=== PATIENT | male | born 1950 | race Caucasian/White ===

== ENCOUNTER 2017-05-24 18:48 | Emergency (ER) | payer MEDICARE, MEDICAID ==
[~2017-05-24] VITALS: Ht 180.3 cm; Wt 81.6 kg
[2017-05-24 18:50] VITALS: BP 145/89
[2017-05-24] MEDS ORDERED: AZITHROMYCIN 250 MG TABLET ONE (20:20)
[2017-05-24] MEDS ORDERED: AZITHROMYCIN 250 MG TABLET PO ONE (20:30)
== END 2017-05-24 21:02 | disposition home or self-care (01) ==
LOC: ER 18:51
DX: J18.9 Pneumonia, unspecified organism (principal); F17.210 Nicotine dependence, cigarettes, uncomplicated; Z71.6 Tobacco abuse counseling; Z87.891 Personal history of nicotine dependence
CPT/HCPCS: 71045-TC; A4606; Z7610

== ENCOUNTER 2020-03-17 09:34 | Inpatient (IN) | payer MEDICARE, OTHER ==
[~2020-03-17] VITALS: Ht 175.3 cm; Wt 84.4 kg
[2020-03-17 09:55] LABS: BASOPHILS % (AUTO) 0.3 % (0.0-2.0); EOSINOPHILS % (AUTO) 0.7 % (0.0-6.0); HEMATOCRIT 46 % (39-51); HEMOGLOBIN 15.1 g/dL (13.5-17.5); LYMPHOCYTES # (AUTO) 1.2 /CMM (0.8-4.8); LYMPHOCYTES % (AUTO) 26.1 % (20.0-44.0); MEAN CORPUSCULAR HGB CONC 33 g/dl (31.0-36.0); MEAN CORPUSCULAR VOLUME 97 fL (80-96); MONOCYTES # (AUTO) 0.4 /CMM (0.1-1.30); MONOCYTES % (AUTO) 9.3 % (2.0-12.0); NEUTROPHILS % (AUTO) 63.6 % (43.0-81.0); PLATELET COUNT (AUTO) 192 /CMM (150-450); RED BLOOD CELL COUNT(AUTO) 4.71 MIL/uL (4.5-6.0); WHITE BLOOD COUNT (AUTO) 4.7 K/uL (4.3-11.0)
[2020-03-17] MEDS ORDERED: DILTIAZEM HCL 25 MG IV ONE (09:57)
[2020-03-17] MEDS ORDERED: ASPIRIN 325 MG TABLET ONE (09:58)
[2020-03-17] MEDS ORDERED: DILTIAZEM HCL IV 125 MG in IV NS 0.9% 100 ML IV PRN (10:00)
[2020-03-17] MEDS ORDERED: NITROGLYCERIN 0.4 MG/TAB BOTTLE SL ONE (10:00)
[2020-03-17] MEDS ORDERED: ASPIRIN 325 MG TABLET PO ONE (10:00)
[2020-03-17] MEDS ORDERED: DILTIAZEM HCL 50 MG IV IV ONE (10:00)
[2020-03-17 10:03] LABS: CALCIUM, SERUM 9.4 mg/dL (8.5-10.1); CARBON DIOXIDE 28 mmol/L (21-32); CHLORIDE 106 mmol/L (98-107); CREATININE 1.3 mg/dL (0.6-1.3); GLUCOSE 122 mg/dL (74-106); POTASSIUM 4.8 mmol/L (3.5-5.1); SODIUM SERUM 142 mmol/L (136-145); UREA NITROGEN, BLOOD 16 mg/dL (7-18)
[2020-03-17] MEDS ORDERED: IBUP-1955 PO (10:06)
[2020-03-17] MEDS ORDERED: ATOR10TA PO (10:06)
[2020-03-17] MEDS ORDERED: CARV6.252 PO (10:06)
[2020-03-17] MEDS ORDERED: HYDR-4076 PO (10:06)
[2020-03-17] MEDS ORDERED: AMLO-213 PO (10:06)
[2020-03-17] MEDS ORDERED: TERA2CAP4 PO (10:06)
[2020-03-17] MEDS ORDERED: MEMA10TA56 PO (10:06)
[2020-03-17] MEDS ORDERED: MAG HYDROX/AL HYDROX/SIMETH 30 ML UDC PO PRN (12:30)
[2020-03-17] MEDS ORDERED: MORPHINE SULFATE INJ 2 MG/ML DISP.SYRIN IV PRN (12:30)
[2020-03-17] MEDS ORDERED: NICARDIPINE IN NACL, ISO-OSM 200 ML IV PRN (12:30)
[2020-03-17] MEDS ORDERED: hydrALAZINE HCL 25 MG TABLET PO PRN (12:30)
[2020-03-17] MEDS ORDERED: ONDANSETRON HCL/PF 4 MG/2 ML VIAL IVP PRN (12:30)
[2020-03-17] MEDS ORDERED: DOCUSATE SODIUM 100 MG CAPSULE PO PRN (12:30)
[2020-03-17 13:18] LABS: THYROID STIMULATING HORMONE 1.929 uIU/mL (0.358-3.74)
[2020-03-17] MEDS ORDERED: CARVEDILOL 6.25 MG TABLET ONE (17:02)
[2020-03-17] MEDS ORDERED: APIXABAN 5 MG TABLET ONE (17:02)
[2020-03-17] MEDS ORDERED: MEMANTINE HCL 5 MG TABLET ONE (17:03)
[2020-03-17] MEDS: APIXABAN 5 MG TABLET PO SCH (17:07)
[2020-03-17] MEDS: CARVEDILOL 6.25 MG TABLET PO SCH (17:07)
[2020-03-17] MEDS: MEMANTINE HCL 5 MG TABLET PO SCH (17:07)
[2020-03-17] MEDS ORDERED: ATORVASTATIN 10 MG TABLET ONE (18:27)
[2020-03-17] MEDS: ATORVASTATIN 10 MG TABLET PO SCH (18:34)
[2020-03-17] MEDS: TERAZOSIN HCL 1 MG CAPSULE PO SCH (21:20)
[2020-03-18 05:41] LABS: BASOPHILS % (AUTO) 0.3 % (0.0-2.0); EOSINOPHILS % (AUTO) 1.3 % (0.0-6.0); HEMATOCRIT 42 % (39-51); HEMOGLOBIN 13.7 g/dL (13.5-17.5); LYMPHOCYTES # (AUTO) 1.3 /CMM (0.8-4.8); LYMPHOCYTES % (AUTO) 28.7 % (20.0-44.0); MEAN CORPUSCULAR HGB CONC 33 g/dl (31.0-36.0); MEAN CORPUSCULAR VOLUME 97 fL (80-96); MONOCYTES # (AUTO) 0.5 /CMM (0.1-1.30); MONOCYTES % (AUTO) 12.4 % (2.0-12.0); NEUTROPHILS # (AUTO) 2.5 /CMM (1.8-8.9); NEUTROPHILS % (AUTO) 57.3 % (43.0-81.0); PLATELET COUNT (AUTO) 170 /CMM (150-450); RED BLOOD CELL COUNT(AUTO) 4.31 MIL/uL (4.5-6.0); WHITE BLOOD COUNT (AUTO) 4.4 K/uL (4.3-11.0)
[2020-03-18 06:04] LABS: ALBUMIN 3.4 g/dL (3.4-5.0); BILIRUBIN,TOTAL 0.7 mg/dL (0.2-1.0); CALCIUM, SERUM 9.2 mg/dL (8.5-10.1); CREATININE 1.3 mg/dL (0.6-1.3); MAGNESIUM 2.1 mg/dL (1.8-2.4); PHOSPHORUS 4.3 mg/dL (2.5-4.9); POTASSIUM 4.2 mmol/L (3.5-5.1); TOTAL PROTEIN, SERUM 7.3 g/dL (6.4-8.2)
[2020-03-18 06:20] LABS: THYROID STIMULATING HORMONE 1.316 uIU/mL (0.358-3.74)
[2020-03-18] MEDS ORDERED: ASPIRIN 81 MG TAB.CHEW ONE (08:49)
[2020-03-18] MEDS ORDERED: MEMANTINE HCL 5 MG TABLET ONE ×2 (08:49→17:39)
[2020-03-18] MEDS ORDERED: APIXABAN 5 MG TABLET ONE ×2 (08:49→17:38)
[2020-03-18] MEDS ORDERED: CARVEDILOL 6.25 MG TABLET ONE (08:49)
[2020-03-18] MEDS ORDERED: DILTIAZEM HCL CD 120 MG ONE (08:49)
[2020-03-18] MEDS: MEMANTINE HCL 5 MG TABLET PO SCH ×2 (08:53→17:39)
[2020-03-18] MEDS: CARVEDILOL 6.25 MG TABLET PO SCH (08:53)
[2020-03-18] MEDS: APIXABAN 5 MG TABLET PO SCH ×2 (08:53→17:39)
[2020-03-18] MEDS ORDERED: DILTIAZEM HCL CD 120 MG PO SCH (09:00)
[2020-03-18] MEDS ORDERED: ASPIRIN 81 MG TAB.CHEW PO SCH (09:00)
[2020-03-18] MEDS ORDERED: AMLODIPINE BESYLATE 10 MG TABLET PO SCH ×2 (09:00)
[2020-03-18] MEDS: TERAZOSIN HCL 1 MG CAPSULE PO SCH (18:00)
[2020-03-18] MEDS: ATORVASTATIN 10 MG TABLET PO SCH (18:14)
[2020-03-18] MEDS ORDERED: ATORVASTATIN 10 MG TABLET ONE (18:15)
[2020-03-18 20:59] VITALS: BP 126/66
[2020-03-19] MEDS ORDERED: CARVEDILOL 6.25 MG TABLET PO SCH (09:00)
== END 2020-03-18 20:58 | disposition left against medical advice (07) | DRG 308 ==
LOC: ER 09:37 → TRANSITION 14:53
PROVIDERS: ADMIT Registered Nurse; ATTEND Registered Nurse
DX: I48.0 Paroxysmal atrial fibrillation (principal); N17.0 Acute kidney failure with tubular necrosis; F17.210 Nicotine dependence, cigarettes, uncomplicated; E78.5 Hyperlipidemia, unspecified; F03.90 Unspecified dementia, unspecified severity, without behavioral disturbance, psychotic disturbance, mood disturbance, and anxiety; E66.9 Obesity, unspecified; Z79.01 Long term (current) use of anticoagulants; Z92.3 Personal history of irradiation; Z92.21 Personal history of antineoplastic chemotherapy; R07.9 Chest pain, unspecified; Z68.27 Body mass index [BMI] 27.0-27.9, adult; Z85.118 Personal history of other malignant neoplasm of bronchus and lung; Z20.822 Contact with and (suspected) exposure to COVID-19; I12.9 Hypertensive chronic kidney disease with stage 1 through stage 4 chronic kidney disease, or unspecified chronic kidney disease; N18.2 Chronic kidney disease, stage 2 (mild)
CPT/HCPCS: 36415; 71045-TC; 76770-TC; 80048-TC; 80053-TC; 80061-TC; 82962-TC; 83735-TC; 83880; 84100-TC; 84439-TC; 84443-TC; 84481; 84484-TC; 85025-TC; 87081-TC; 93307-TC; C9803; G0378; J3490; J7030